=== PATIENT | female | born 1970 | race Caucasian/White ===

== ENCOUNTER 2021-09-06 21:47 | Emergency (ER) | payer OTHER | END 2021-09-06 23:11 | disposition home or self-care (01) | LOC: FER 21:47 | DX: G43.909 Migraine, unspecified, not intractable, without status migrainosus (principal); F17.210 Nicotine dependence, cigarettes, uncomplicated; I10 Essential (primary) hypertension; Z88.0 Allergy status to penicillin; Z88.2 Allergy status to sulfonamides; Z79.899 Other long term (current) drug therapy | CPT/HCPCS: J1200; J1885; J2765 ==

== ENCOUNTER 2022-02-06 12:10 | Emergency (ER) | payer OTHER | END 2022-02-06 13:51 | disposition left against medical advice (07) | LOC: FER 12:10 | DX: G43.909 Migraine, unspecified, not intractable, without status migrainosus (principal); R11.2 Nausea with vomiting, unspecified; Z53.29 Procedure and treatment not carried out because of patient's decision for other reasons | CPT/HCPCS: 99281 ==

== ENCOUNTER 2022-06-28 20:01 | Emergency (ER) | payer OTHER ==
[2022-06-28 21:03] LABS: BASOPHIL 0.8 % (0-2); EOSINOPHIL 5.2 % (0-5); HCT 41.4 % (37.0-47.0); HGB 14.5 g/dl (12.5-16.0); LYMPHOCYTE 34.6 % (15-48); MCH 31.9 pg (25.0-31.0); MONOCYTE 8.3 % (0-12); MPV 10.3 fL (6.0-9.5); NEUTROPHIL 50.6 % (41-80); NRBC 0; PLT 257 K/uL (150-400); RBC 4.55 M/uL (4.20-5.40); RDW 13.1 % (11.5-14.0); WBC 8.4 K/uL (4.0-10.5)
[2022-06-28 21:21] LABS: ALBUMIN 3.3 g/dL (3.4-5.0); BILIRUBIN - TOTAL 0.3 mg/dL (0.2-1.0); BUN/CREAT RATIO (CALC) 9.4 RATIO; CREATININE 1.38 mg/dL (0.51-0.95); GLOBULIN (CALCULATION) 3.6 g/dL; POTASSIUM 3.7 mmol/L (3.5-5.1); TOTAL PROTEIN 6.9 g/dL (6.4-8.2)
[2022-06-28 22:17] LABS: BILIRUBIN NEGATIVE (NEGATIVE); BLOOD NEGATIVE Ery/uL (NEGATIVE); CLARITY CLEAR (CLEAR); COLOR YELLOW (YELLOW); GLUCOSE (U) NORMAL (NORMAL); LEUKOCYTES TRACE Leu/uL (NEGATIVE); NITRITE NEGATIVE (NEGATIVE); PROTEIN 1+ mg/dL (NEGATIVE); SPECIFIC GRAVITY 1.025 (1.001-1.030); UROBILINOGEN 0.2 mg/dL (0.2-1.0)
[2022-06-28 22:30] LABS: BACTERIA 3+; URINARY RBC RARE
== END 2022-06-28 23:30 | disposition home or self-care (01) ==
LOC: FER 20:01
PROVIDERS: Emergency Medicine
DX: R03.1 Nonspecific low blood-pressure reading (principal); R11.0 Nausea; I10 Essential (primary) hypertension; J44.9 Chronic obstructive pulmonary disease, unspecified; F17.200 Nicotine dependence, unspecified, uncomplicated
CPT/HCPCS: 36415; 80053; 81001; 83690; 85025; 87088; J7030